=== PATIENT | female | born 1975 | race Caucasian/White ===

== ENCOUNTER → 2017-09-06 | Outpatient (CLI) | payer BC ==
--- NOTE | 2017-09-07 09:31 | MAM ---
EXAM DESCRIPTION: 3D Screening BILATERAL CLINICAL HISTORY: 41 yearsFemaleANNUAL SCREENING . No complaints. No family history breast cancer. Premenopausal. Currently on HRT. Bilateral breast augmentation. COMPARISON: 2-D digital screening bilateral study 05/27/2015. No prior reports available. TECHNIQUE: Bilateral digital screening. CC and MLO projection full-field, 2-D images. Bilateral Niall implant displacement images, CC and MLO full-field projections, 3-D tomosynthesis. CAD not utilized. FINDINGS: The breast parenchymal density pattern is: Heterogeneously dense breast tissue, which may obscure small masses. No skin thickening or nipple retraction bilaterally. Asymmetrically dense fibroglandular tissue in the retroareolar left breast is stable. Bilateral saline intramuscular implants. Implant capsules appear intact where seen. No focal, stellate mass or density no focal asymmetry, and no suspicious microcalcifications bilaterally Stable mammograms compared to prior study, taking into account differences in mammographic technique. IMPRESSION: BI-RADS CATEGORY: 2 - BENIGN FINDINGS. FOLLOW UP: Routine digital bilateral screening, one year interval from August 2017. Written communication explaining the IMPRESSION and follow-up, will be mailed to the patient and referring health care provider. According to the [employer], yearly mammograms are recommended starting at age 40 and continuing as long as a woman is in good health. Any breast change noted on a breast self-exam should be reported promptly to the patient's healthcare provider. Breast MRI is recommended for women with an approximately 20-25% or greater lifetime risk of breast cancer, including women with a strong family history of breast or ovarian cancer and women who have been treated for Hodgkin's disease. A negative mammographic report should not delay tissue diagnosis in patients with significant clinical history or physical findings. Extremely dense breast tissue limits the sensitivity of digital mammography. Electronically signed by: Uriel Covarrubias MD 09/07/2017 9:30 AM [employer]IENT [employer]UTIONS MANAGER
== END ==
LOC: MAMMO 13:00
PROVIDERS: ATTEND Nurse Practitioner Women's Health
DX: Z12.31 Encounter for screening mammogram for malignant neoplasm of breast (principal)
CPT/HCPCS: 77063; G0202